=== PATIENT | female | born 1960 | race Caucasian/White ===

== ENCOUNTER 2016-08-09 13:21 | Emergency (ER) | payer OTHER ==
[~2016-08-09] VITALS: Ht 165.1 cm; Wt 77.3 kg
[2016-08-09 13:21] VITALS: BP 128/66; PULSE 72; RESP 15; O2SAT 97
[2016-08-09] MEDS ORDERED: METF750T2 PO (13:41)
[2016-08-09] MEDS ORDERED: ATRV10T PO (13:41)
[2016-08-09] MEDS ORDERED: ASPI-973 PO (13:41)
[2016-08-09] MEDS ORDERED: IRBE300T18 PO (13:41)
[2016-08-09] MEDS ORDERED: LIDO700A33 TOP (13:41)
--- NOTE | 2016-08-09 13:42 | ED.REPORT ---
HPI-General Illness Date of Service Aug 09, 2016 ED Provider: Jonnathan Lancaster MD Pt is a 56 y/o female w/ a hx of DM presenting to the ED with her due to syncopal episode which occurred prior to arrival. The patient skipped a meal today while out with her and then experienced an episode of syncope while she was sitting in her car. Her describes the episode as her becoming pale and diaphoretic with a 1 second long episode of decreased LOC. She denies CP, palpitations, abdominal pain, SOB, focal numbness or weakness, speech or vision changes. This has happened before many years ago and were preceded by long periods of not eating and workups then were negative. This was the first episode that occurred after she was diagnosed with diabetes. She was given food by her at time of arrival with resolve of symptoms. Nursing Notes Stated Complaint: POSSIBLE DIABETIC ISSUE Chief Complaint: General Complaint Nursing Notes Reviewed: Yes Allergies: Coded Allergies: No Known Allergies (Unverified , 08/09/16) Scheduled Aspirin (Aspirin) 81 Mg Tablet 81 MG PO DAILY Atorvastatin (Lipitor) 10 Mg Tab 10 MG PO DAILY Irbesartan (Irbesartan) 300 Mg Tablet 300 MG PO DAILY Lidocaine (Lidocaine) 700 Mg Adh..patch 1 PATCH TOP DAILY Metformin ER (Metformin ER) 750 Mg Tablet 750 MG PO BID General Time Seen by MD: 13:41 Chief Complaint Other (syncope) Hx Obtained From: Patient Arrived By: Walk-in Sudden in Onset?: Yes Onset Occurred: Just prior to arrival Symptom Duration: 1 - 15 minutes Severity: Current: No pain currently Severity: Maximum: No pain Similar Sx Previous: Yes Past Medical History Past Medical History DM Past Surgical History None reported Smoking History Unknown if Ever Smoker Ambulatory Status Independent Review of Systems Full Review of Systems Constitutional: Denies: Chills, Fever Respiratory: Denies: Non-productive cough, Shortness of breath Cardiovascular: Denies: Chest pain, Palpitations GI: Denies: Abdominal pain, Nausea, Vomiting Neurologic: Reports: Change LOC, Lightheaded, Syncope, Denies: Confusion, Focal weakness, Numbness, Unable to speak, Vision change Complete sys rev & neg: except as marked. Physical Exam Vital Signs Vital Signs Date Time Temp Pulse Resp B/P Pulse Ox O2 Delivery O2 Flow Rate FiO2 08/09/16 15:33 85 12 117/63 100 Room Air 08/09/16 15:06 85 14 116/58 100 Room Air 08/09/16 15:05 83 10 111/60 100 Room Air 08/09/16 15:05 79 9 109/57 98 Room Air 08/09/16 13:21 72 15 128/66 97 Room Air Initial VS: Reviewed, Vital signs normal Head / Eyes: Atraumatic, Normocephalic, PERRL ENT: Mucous membranes moist, Conjunctiva normal, No scleral icterus Neck: Supple, Full range of motion Respiratory: Breath sounds normal, Clear to auscultation, No respiratory distress Cardiovascular: Regular rate & rhythm, Heart sounds normal, Intact distal pulses Abdomen / GI: Soft, Non-tender, No guarding, No rebound, No distention Extremities: Vascular intact, Neuro intact, No swelling Skin: Warm, Dry, No cyanosis Psychiatric: Mood/affect normal, Behavior normal, Normal thought content General/Constitutional: Awake, Alert, No acute distress, Well appearing, Well hydrated, Cooperative, Not toxic appearing Neurologic: Oriented X3, Speech NL, No motor deficits, No sensory deficits, CN II - XII intact, Cerebellar NL, Memory NL Interpretation & Diagnostics Lab Results Interpretation Result Diagram: 08/09/16 1339 08/09/16 1339 Test 08/09/16 13:39 White Blood Count 8.8th/mm3 (3.8-10.1) Red Blood Count 4.57mil/mm3 (3.90-5.20) Hemoglobin 13.6g/dL (12.0-15.6) Hematocrit 40.2% (35.0-46.0) Mean Corpuscular Volume 88.0fL (81-100) Mean Corpuscular Hemoglobin 29.8pg (27.0-35.0) Mean Corpuscular Hemoglobin Concent 33.8% (32.0-37.0) Red Cell Distribution Width 12.6% (12.3-15.4) Platelet Count 291bil/L (150-400) Neutrophils (%) (Auto) 41.6% (40-74) Lymphocytes (%) (Auto) 45.8% (14-46) Monocytes (%) (Auto) 9.8% (4-12) Eosinophils (%) (Auto) 2.2% (0-5) Basophils (%) (Auto) 0.5% (0-3) Sodium Level 135mEq/L (134-144) Potassium Level 4.3mEq/L (3.5-5.2) Chloride Level 97mEq/L (97-108) Carbon Dioxide Level 24mmol/L (18-29) Blood Urea Nitrogen 14mg/dL (6-24) Creatinine 0.59mg/dL (0.57-1.00) Estimat Glomerular Filtration Rate 152mL/min (>59) Glucose Level 140mg/dL (60-99) Calcium Level 9.8mg/dL (8.5-10.1) Magnesium Level 1.9mg/dL (1.6-2.6) Total Bilirubin 0.2mg/dL (0.0-1.2) Aspartate Amino Transf (AST/SGOT) 17U/L (0-50) Alanine Aminotransferase (ALT/SGPT) 15U/L (0-32) Alkaline Phosphatase 105U/L (25-150) Troponin T < 0.010ug/L (0.0-0.011) Total Protein 7.6g/dL (6.4-8.4) Albumin 4.8g/dL (3.4-5.0) ECG Interpretation Time: 14:35 Interpreted by: ED physician Normal ECG Interpretation: Normal ECG w/ rate of... (69), Normal rate, Normal sinus rhythm, No acute ischemic changes, Normal QRS, Normal axis, Normal intervals, Adequate tracing Re-Eval/Medical Decision Med Decision/Clinical Course 56-year-old female history of diabetes and multiple syncopal events in the past presenting with syncopal event. She had no cardiac prodrome. Event only lasted for 1 second per her . Her symptoms resolved after she had something to eat here. She felt much better. Her EKG is unremarkable. She has no neurological deficits. Her labs are stable. She has negative orthostatics. Her troponins were negative. She has had a couple of events like this in the past when she has been very hungry. Her blood sugar here was normal. Suspect possibly vasovagal. I discussed the patient and she prefers to go home and will return if she has any recurrence of symptoms. Will follow up with her primary doctor this week. Time of Eval: 15:13 Patient Status: Condition resolved, Complete relief, Pain resolved Re-Evaluation/Progress Note: Pt rechecked. Informed pt of plan for treatment. Pt understands and agrees with plan for treatment. F/U instructions and RTER warnings given. All questions addressed. Counseled Regarding: Diagnosis, Lab results, Need for follow-up, When/why to return to ED Discharge & Departure Primary Impression: Episode of syncope Syncope type: vasovagal syncope Qualified Code: R55 - Syncope and collapse Disposition: Home Discharge Condition All VS Reviewed: Yes Condition: Stable Patient Instructions: Syncope (ED) Additional Instructions: The cause of your syncopal episode today is unclear, but is likely not dangerous given your history. Labs and physical exam today were reassuring. Your glucose was 140. I recommend you eat regularly to avoid these episodes. Return to the emergency department if you have another syncopal episode or experience chest pain, palpitations, lightheadedness, speech or vision changes, trouble breathing, or for other concerning symptoms. Follow-up with your primary care doctor in 1-3 days for a recheck. Referrals: Emeli Sullivan (PCP) [employer] Attestation Portions of this note were transcribed by Adebayo Cerna. I, Dr. Lancaster, personally performed the history, physical exam and medical decision-making; I reviewed and confirmed the accuracy of the information in the transcribed note. Signed by Zhen Davies, 08/09/16 - 1500 copies to: Emeli Sullivan Ben M MD Aug 09, 2016 13:42 ADEBAYO ECRNA Aug 09, 2016 14:34
[2016-08-09 13:43] LABS: BASOPHILS % (AUTO) 0.5 % (0-3); EOSINOPHILS % (AUTO) 2.2 % (0-5); MONOCYTES % (AUTO) 9.8 % (4-12); Mean Corpuscular Hemoglobin 29.8 pg (27.0-35.0); NEUTROPHILS % (AUTO) 41.6 % (40-74); Platelet Count 291 bil/L (150-400)
[2016-08-09 14:16] LABS: TROPONIN T < 0.010 ug/L (0.0-0.011)
[2016-08-09 14:27] LABS: Magnesium 1.9 mg/dL (1.6-2.6)
[2016-08-09] MEDS ORDERED: 0.9% Sodium Chloride 1,000 ML IV ONE (14:35)
[2016-08-09 15:05] VITALS: BP_SYST 109; BP_SYST 111; BP_DIAS 57; BP_DIAS 60; PULSE 79; PULSE 83; RESP 10; RESP 9; O2SAT 100; O2SAT 98
[2016-08-09 15:06] VITALS: BP 116/58; PULSE 85; RESP 14; O2SAT 100
[2016-08-09 15:33] VITALS: BP 117/63; PULSE 85; RESP 12; O2SAT 100
== END 2016-08-09 15:10 | disposition home or self-care (01) ==
LOC: SED 13:21
DX: R55 Syncope and collapse (principal); R61 Generalized hyperhidrosis; E11.9 Type 2 diabetes mellitus without complications; Z79.82 Long term (current) use of aspirin; Z79.84 Long term (current) use of oral hypoglycemic drugs
CPT/HCPCS: 36415; 80053; 82948; 83735; 84484; 85025; 93005; 96360; 99285; J7030